=== PATIENT | male | born 1995 | race Caucasian/White ===

== ENCOUNTER 2021-03-26 14:55 | Emergency (ER) | payer MEDICARE, MEDICAID, SELFPAY ==
[2021-03-26 14:58] VITALS: BP 128/86; PULSE 87; RESP 18; TEMP 36.6; O2SAT 97
--- NOTE | 2021-03-26 15:42 | ED.GENADUL_ITS ---
Discharge Plan Disposition Patient Disposition: HOME Condition: Stable Discharge Details Clinical Impression: Long uvula Primary Care Provider: Jose Griffin ED Provider: Reyes Smith Home Meds and New Rx's Prescriptions: Continued albuterol sulfate 0.63 MG/3 ML solution for nebulization 1 mg Inhalation PRN PRNRF: 0 levalbuterol HCl [Xopenex] 0.63 MG/3 ML solution for nebulization 2 mg Inhalation PRN PRNRF: 0 Discharge Instructions Additional Instructions: Your strep test is negative. A single dose of oral Decadron given here in the ER. Cnso-[id number] Tylenol and/or Motrin as directed. Salt water gargles as tolerated. You are having no difficulty with breathing, speaking, managing her own secretions. Please watch for new or worsening symptoms and return to the ER for any concerns. Otherwise I do recommend contacting our ENT specialist given your symptoms have been present for going on over 2 weeks. I have given you his name and number, call his office tomorrow to make an appointment Referrals: Beto Cobb MD [ [facility] STAFF PHYSICIAN] - Discharge Data Discharge Date/Time-TO BE ENTERED AT DEPARTURE: 03/26/21 16:09 Medical Decision Making 25-year-old gentleman presents to the ER for evaluation feeling is that his uvula is larger than usual, he can sense that in the back of his throat and on his tongue, typically cannot. He has no difficulty speaking, swallowing, breathing. He has no additional questions or concerns. Denies any other symptoms. He was already evaluated at [facility] for this, negative strep and mono. Patient appears well, nontoxic, hemodynamically stable, afebrile, speaking in full sentences. His airway patent. No evidence of stridor, trismus, etc. Discussed that I do not see any grossly abnormal anatomy upon evaluation. Will obtain strep test although he has already had a negative test. Clinically no evidence of epiglottitis, peritonsillar abscess, uvulitis, respiratory compromise. Negative strep Discussed negative strep with patient. Discussed his ongoing symptoms, treatment, need for follow-up. Will provide a single dose of Decadron, 10 mg here in the ER and referred to ears nose and throat. Patient is comfortable this plan and has no additional questions or concerns. Single dose of Decadron given. Standard discharge and return precautions provided This documentation was generated using [employer] system, please disregard any oddities of phrase or misspellings. Medical Records Medical records reviewed: Yes I reviewed the patient's medical records. Lab Data Lab results reviewed: Yes I reviewed the patient's lab results. Lab results narrative: Negative rapid strep HPI General Mode of arrival: ambulatory . Date/Time Provider Initiated Documentation: 03/26/21 15:11 . Limitations to Documentation: no limitations . Information obtained by: patient . HPI Narrative: Patient is a 25-year-old male, non-smoker, no past medical history, presenting to the ER today reporting that he feels as though his uvula is larger than usual, has been present consistently for the past 2 weeks. Patient denies any pain, difficulty swallowing or breathing. Patient states that he can simply feel his uvula that is present as before he did not notice it. Patient states that he was already seen at [facility] ER, negative strep and mono. Patient states he has taken Advil over the past week occasionally with no significant relief. Patient has no additional questions or concerns. Patient states he has never had symptoms like this before. Patient denies recent illness or trauma. He denies fever, nasal congestion, sore throat, cough. Denies rash, soft tissue swelling elsewhere, joint pain. Related Data Home Medications Medication Instructions Recorded Confirmed albuterol sulfate 1 mg INHALATION PRN PRN 03/15/13 03/26/21 levalbuterol HCl [Xopenex] 2 mg INHALATION PRN PRN 03/15/13 03/26/21 Allergies Allergy/AdvReac Type Severity Reaction Status Date / Time No Known Allergies Allergy Unverified 03/26/21 15:00 General Stated Complaint: Sorethroat OZIEL: 4 Review of Systems Constitutional Constitutional: Denies fever(s) ENT Ears, Nose, Mouth, and Throat: Denies lip swelling, Denies mouth lesions, Denies mouth pain, Denies nasal discharge, Denies neck pain, Denies sore throat, Denies throat swelling and Denies tongue swelling Cardiovascular Cardiovascular: Denies chest pain and Denies dyspnea Respiratory Respiratory: Denies cough and Denies dyspnea Gastrointestinal Gastrointestinal: Denies abdominal pain, Denies nausea and Denies vomiting Musculoskeletal Musculoskeletal: Denies neck pain Integumentary/Breasts Skin/Breast: Denies rash Allergic/Immunologic Allergic/Immunologic: Denies lip swelling, Denies throat swelling and Denies tongue swelling FOR[facility], [facility] Social History Smoking/Tobacco Use Status: Never Smoking risk assessment performed?: Yes Alcohol Intake: never Drug use: Never Substance use type: does not use Exam Const General: cooperative, healthy appearing, comfortable and no acute distress Orientation: alert, awake and oriented x3 HENMT Head: normal to inspection, normocephalic and atraumatic Ears: external ears normal, TM's normal bilaterally and EAC's normal General nose exam: external nose normal and no nasal discharge Face and sinus: normal facial exam Mouth: oral mucosae normal, lip normal, tongue normal, moist mucous membranes and no drooling Teeth and gingiva: dentition normal Throat: posterior oropharynx normal, tonsils normal, uvula midline, normal tonsils, no peritonsillar masses, uvula not displaced and no uvular edema Other: Posterior oropharynx essentially unremarkable, normal-appearing anatomy. Uvula does not appear erythematous or edematous. It may be slightly longer than average but I do not appreciate it resting or lying on any other soft tissue structures. Airway is patent. Eyes General: appearance normal, both eyes and all related structures Conjunctivae: conjunctivae normal Neck Neck: normal visual inspection, full ROM, no lymphadenopathy, no meningeal signs, trachea midline, supple and nontender Resp Effort & Inspection: normal respiratory effort and able to speak in complete sentences Auscultation: clear to auscultation bilaterally Cardio Rate: regular rate Rhythm: regular rhythm Skin General skin exam: no rashes or lesions noted Neuro General: patient alert, patient awake, moves all extremities and no focal motor deficits Sensory Exam: no sensory deficits noted Psych Appearance: grossly normal Mental Status: mental status grossly normal Course Vital Signs Vital signs: Vital Signs Temperature 36.6 C 03/26/21 14:58 Pulse 87 03/26/21 14:58 Respiratory Rate 18 03/26/21 14:58 Blood Pressure 128/86 03/26/21 14:58 Pulse Oximetry 97 03/26/21 14:58 Temperature 36.6 C 03/26/21 14:58 Temperature Source Temporal Artery Scan 03/26/21 14:58 Pulse 87 03/26/21 14:58 Respiratory Rate 18 03/26/21 14:58 Respiratory Effort Non-Labored 03/26/21 15:28 Blood Pressure 128/86 03/26/21 14:58 Blood Pressure Position Sitting 03/26/21 14:58 Pulse Oximetry 97 03/26/21 14:58 Oxygen Delivery Method Room Air 03/26/21 14:58 Oxygen Flow Rate 0 03/26/21 14:58 Pain Level 0 03/26/21 14:58
[2021-03-26] MEDS: Dexamethasone 4 MG TAB 10 MG PO (15:50)
== END 2021-03-26 16:09 | disposition home or self-care (01) ==
PROVIDERS: Emergency Provider Physician Assistant; PCP Physician Assistant Medical
DX: K13.79 Other lesions of oral mucosa (principal)
CPT/HCPCS: 87880; 99283; J8540